=== PATIENT | male | born 1990 ===

== ENCOUNTER 2016-11-30 08:05 | Emergency (ER) | payer OTHER ==
[2016-11-30 08:06] VITALS: BMI 20.7
[2016-11-30 08:14] VITALS: O2SAT 100
[2016-11-30] MEDS ORDERED: Aluminum Hydroxide/Magnesium Hydroxide Susp (30 mL) PO STA (08:27)
[2016-11-30] MEDS ORDERED: Lidocaine 2% Viscous 100 ml PO STA (08:27)
[2016-11-30] MEDS ORDERED: Aluminum Hydroxide/Magnesium Hydroxide Susp (30 mL) ONE (08:39)
--- NOTE | 2016-11-30 08:41 | C.PDOC ---
History Of Present Illness 26 y/o male, otherwise well, presents to the ED for evaluation of abdominal pain and vomiting. He reports that while he was on his way to work he drank a can of Nutriment and by the time he got to work he was experiencing "severe" abdominal cramping and he felt like he needed to move his bowels. Patient states that he tried unsuccessfully to move his bowels and when he got up to leave the bathroom he became suddenly nauseated and vomited. At this time the patient reports he's feeling much better and the pain has subsided. He denies any diarrhea, fevers, or other complaints. Time Seen by Provider: 11/30/16 08:17 Chief Complaint (Nursing): GI Problem History Per: Patient History/Exam Limitations: no limitations Onset/Duration Of Symptoms: Mins, Gradual, Persistent Current Symptoms Are (Timing): Better Recent travel outside of the [place]: No Past Medical History Reviewed: Historical Data, Nursing Documentation, Vital Signs Vital Signs: Last Vital Signs Temp 98 F 11/30/16 08:10 Pulse 59 L 11/30/16 08:10 Resp 20 11/30/16 08:10 BP 114/74 11/30/16 08:10 Pulse Ox 100 11/30/16 08:44 - Medical History PMH: No Chronic Diseases Surgical History: No Surg Hx Family History: States: Unknown Family Hx - Social History Hx Tobacco Use: No Hx Alcohol Use: No Hx Substance Use: No - Immunization History Hx Tetanus Toxoid Vaccination: No Hx Influenza Vaccination: No Hx Pneumococcal Vaccination: No Review Of Systems Except As Marked, All Systems Reviewed And Found Negative. Constitutional: Negative for: Fever Gastrointestinal: Positive for: Vomiting (x 1), Abdominal Pain (resolved). Negative for: Diarrhea Physical Exam - Physical Exam Appears: Non-toxic, No Acute Distress Skin: Normal Color, Warm, Dry Head: Atraumatic, Normacephalic Eye(s): bilateral: Normal Inspection, PERRL Oral Mucosa: Moist Neck: Normal ROM, Supple Chest: Symmetrical Cardiovascular: Rhythm Regular Respiratory: Normal Breath Sounds, No Rales, No Rhonchi, No Wheezing Gastrointestinal/Abdominal: Normal Exam, Soft, No Tenderness Back: Normal Inspection, No CVA Tenderness Extremity: Normal ROM, Deformity (old deformity to right hand), No Swelling Neurological/Psych: Oriented x3, Normal Speech, Normal Cognition ED Course And Treatment O2 Sat by Pulse Oximetry: 100 (ra) Pulse Ox Interpretation: Normal Medical Decision Making Medical Decision Making: Impression: abdominal pain with one episode of vomiting, resolved prior to arrival. Plan: * Maalox PO, Pepcid PO, Lidocaine 2% Viscous PO * Patient feeling fine Disposition Counseled Patient/Family Regarding: Diagnosis, Need For Followup - Disposition Disposition: HOME/ ROUTINE Disposition Time: 10:13 Condition: STABLE Additional Instructions: Follow up with your doctor as needed. Return to the Emergency department with any further concerns. Instructions: Acute Nausea and Vomiting (ED) - POA Present On Arrival: None - Clinical Impression Clinical Impression: Vomiting without nausea - Scribe Statement The provider has reviewed the documentation as recorded by the Scribe (Jyoti Carbajal) Provider Attestation: All medical record entries made by the Scribe were at my direction and personally dictated by me. I have reviewed the chart and agree that the record accurately reflects my personal performance of the history, physical exam, medical decision making, and the department course for this patient. I have also personally directed, reviewed, and agree with the discharge instructions and disposition.
[2016-11-30 10:31] VITALS: BP 115/70; PULSE 58; RESP 18; TEMP 97.3
== END 2016-11-30 10:32 | disposition home or self-care (01) ==
LOC: C.ER 08:05
DX: R11.10 Vomiting, unspecified (principal)

== ENCOUNTER 2017-06-20 11:35 | Emergency (ER) | payer OTHER ==
[2017-06-20 11:38] VITALS: BMI 18.3
[2017-06-20 11:39] VITALS: TEMP 97.7
--- NOTE | 2017-06-20 12:20 | RAD ---
HISTORY: pain COMPARISON: None available. TECHNIQUE: Chest PA and lateral FINDINGS: LUNGS: Biapical pleural thickening. No focal consolidation. Please note that chest x-ray has limited sensitivity for the detection of pulmonary masses. PLEURA: No significant pleural effusion identified. No definite pneumothorax . CARDIOVASCULAR: The cardiomediastinal silhouette appears within normal limits of size. OSSEOUS STRUCTURES: No acute osseous abnormality identified. VISUALIZED UPPER ABDOMEN: Unremarkable. OTHER FINDINGS: None. IMPRESSION: Biapical pleural thickening.
--- NOTE | 2017-06-20 12:27 | C.PDOC ---
History Of Present Illness 26 yo male c/o left sided upper back pain for 2+ months. Pain is worse with movement. Pt notes "I cant get comfortable in bed." No chest pain. No SOB. Took Advil without relief. 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 Time Seen by Provider: 06/20/17 11:40 Chief Complaint (Nursing): Back Pain History Per: Patient History/Exam Limitations: no limitations Onset/Duration Of Symptoms: Days Current Symptoms Are (Timing): Still Present Quality Of Discomfort: "Pain" Past Medical History Vital Signs: Last Vital Signs Temp 97.7 F 06/20/17 11:38 Pulse 67 06/20/17 12:59 Resp 17 06/20/17 12:59 BP 116/65 06/20/17 12:59 Pulse Ox 99 06/20/17 12:59 Family History: States: Other Other Family History: Mom- lung cancer - Social History Hx Tobacco Use: No Hx Alcohol Use: No Hx Substance Use: No - Immunization History Hx Tetanus Toxoid Vaccination: No Hx Influenza Vaccination: No Hx Pneumococcal Vaccination: No Review Of Systems Except As Marked, All Systems Reviewed And Found Negative. Constitutional: Negative for: Fever Cardiovascular: Negative for: Chest Pain Respiratory: Negative for: Cough, Shortness of Breath, SOB with Excertion Physical Exam - Physical Exam Appears: Well, Non-toxic, No Acute Distress Skin: Normal Color, Warm, Dry Head: Atraumatic, Normacephalic Eye(s): bilateral: Normal Inspection, PERRL, EOMI Nose: Normal Oral Mucosa: Moist Throat: Normal Neck: Normal Chest: Symmetrical Cardiovascular: Rhythm Regular Respiratory: Normal Breath Sounds Gastrointestinal/Abdominal: Normal Exam, Soft, No Tenderness Back: No Vertebral Tenderness, Paraspinal Tenderness ((+) left subscapularis point tenderness) Extremity: Normal ROM Neurological/Psych: Oriented x3, Normal Speech Gait: Steady ED Course And Treatment O2 Sat by Pulse Oximetry: 97 Progress Note: Flexeril given. Case discussed with Dr Carranza, agreed upon plan and discharge. Pt was instructed to follow up with clinic in 1-2 days. Return to ER if symtpoms persist or worsen. Disposition - Disposition Referrals: [facility] [Outside] Disposition: HOME/ ROUTINE Disposition Time: 12:32 Condition: STABLE Additional Instructions: Follow up with the clinic in 2-5 days for further evaluation. Take medications as prescribed. Return to the emergency department at any time if symptoms persist or worsen. You may call [facility] service for any assistance [phone]. Prescriptions: Naproxen [Naprosyn] 1 tab PO BID PRN #20 tab PRN Reason: Pain Instructions: Back Pain (ED) Forms: [facility] (Beninese) - Clinical Impression Clinical Impression: Upper back pain
[2017-06-20 13:00] VITALS: BP 116/65; PULSE 67; RESP 17
[2017-06-20 13:06] VITALS: O2SAT 97
== END 2017-06-20 13:00 | disposition home or self-care (01) ==
LOC: C.ER 11:35
DX: M54.9 Dorsalgia, unspecified (principal)

== ENCOUNTER 2017-09-20 11:55 | Emergency (ER) | payer SELFPAY ==
[2017-09-20 11:56] VITALS: BMI 18.3
[2017-09-20 12:04] VITALS: RESP 18; TEMP 97.9; O2SAT 100
--- NOTE | 2017-09-20 13:45 | C.PDOC ---
History Of Present Illness 26 year old male, with no significant past medical history, presents to ED for evaluation of cold, cough, sore throat, and generalized weakness for the past 2- 3 days. Notes having pain upon swallowing. Pt reports having an episode of vomiting last night. Denies abdominal pain, diarrhea, constipations, urinary symptoms, shortness of breath, or fever. Time Seen by Provider: 09/20/17 12:44 Chief Complaint (Nursing): Flu-like Symptoms History Per: Patient History/Exam Limitations: no limitations Onset/Duration Of Symptoms: Days (3) Current Symptoms Are (Timing): Still Present Location Of Pain: Throat Sick Contacts (Context): None Associated Symptoms: Sore Throat, Cough, Vomiting. denies: Fever, Chills, Sputum, Neck Pain, Sinus Drainage, Nasal Congestion Ear Symptoms: Bilateral: None Recent travel outside of the [place]: No Additional History Per: Patient Past Medical History Reviewed: Historical Data, Nursing Documentation, Vital Signs Vital Signs: Last Vital Signs Temp 97.9 F 09/20/17 12:00 Pulse 90 09/20/17 14:02 Resp 18 09/20/17 14:02 BP 116/74 09/20/17 14:02 Pulse Ox 100 09/20/17 14:02 Family History: States: Unknown Family Hx - Social History Hx Tobacco Use: No Hx Alcohol Use: No Hx Substance Use: No - Immunization History Hx Tetanus Toxoid Vaccination: No Hx Influenza Vaccination: No Hx Pneumococcal Vaccination: No Review Of Systems Except As Marked, All Systems Reviewed And Found Negative. Constitutional: Positive for: Weakness. Negative for: Fever, Chills ENT: Positive for: Throat Pain. Negative for: Ear Pain, Nose Discharge, Nose Congestion Cardiovascular: Negative for: Chest Pain, Palpitations Respiratory: Positive for: Cough. Negative for: Shortness of Breath Gastrointestinal: Positive for: Vomiting. Negative for: Abdominal Pain, Diarrhea, Constipation, Hematemesis Genitourinary: Negative for: Dysuria, Frequency, Hematuria Musculoskeletal: Negative for: Back Pain Neurological: Negative for: Headache, Dizziness Physical Exam - Physical Exam Appears: Non-toxic, No Acute Distress Skin: Normal Color, Warm, Dry Head: Atraumatic, Normacephalic Eye(s): bilateral: Normal Inspection Ear(s): Bilateral: Normal Nose: Normal Oral Mucosa: Moist Tongue: Normal Appearing Lips: Normal Appearing Throat: Normal, No Erythema, No Exudate, No Drooling Neck: Normal ROM, Supple Lymphatic: Normal Exam, No Adenopathy Chest: Symmetrical Cardiovascular: Rhythm Regular, No Murmur Respiratory: Normal Breath Sounds, No Rales, No Rhonchi, No Wheezing Gastrointestinal/Abdominal: Soft, No Tenderness Extremity: Normal ROM Neurological/Psych: Oriented x3, Normal Speech ED Course And Treatment O2 Sat by Pulse Oximetry: 100 (RA) Pulse Ox Interpretation: Normal Progress Note: On reassessment, patient is resting comfortably, and is in no acute distress. Patient was instructed to follow up with physician/clinic in 1- 2 days for further evaluation. Disposition Counseled Patient/Family Regarding: Diagnosis, Need For Followup, Rx Given - Disposition Disposition: HOME/ ROUTINE Disposition Time: 13:50 Condition: STABLE Additional Instructions: Please follow up with PMD Take meds as directed Return to ER if worse Prescriptions: guaiFENesin/Dextromethorphan [Robitussin DM] 5 ml PO QID #100 ml Ibuprofen [Motrin] 600 mg PO Q6H #20 tab Instructions: Viral Syndrome (ED) Forms: [facility] (Swedish), Work Excuse - Clinical Impression Clinical Impression: Viral illness - PA / [employer] / Resident Statement MD/DO has reviewed & agrees with the documentation as recorded. - Scribe Statement The provider has reviewed the documentation as recorded by the Geibnoy Sparrow All medical record entries made by the Adams were at my direction and personally dictated by me. I have reviewed the chart and agree that the record accurately reflects my personal performance of the history, physical exam, medical decision making, and the department course for this patient. I have also personally directed, reviewed, and agree with the discharge instructions and disposition.
[2017-09-20 14:02] VITALS: BP 116/74; PULSE 90
== END 2017-09-20 14:03 | disposition home or self-care (01) ==
LOC: C.ER 11:55
DX: B34.9 Viral infection, unspecified (principal)

== ENCOUNTER 2018-03-10 13:56 | Emergency (ER) | payer SELFPAY ==
[2018-03-10 13:56] VITALS: BMI 18.3
[2018-03-10 14:04] VITALS: BP 121/71; PULSE 106; RESP 20; TEMP 98; O2SAT 100
--- NOTE | 2018-03-10 14:17 | C.PDOC ---
History Of Present Illness 27 y/o male presents to ED with c/o diarrhea since this morning and requesting work note to return to work. Patient states he ate at a cook out yesterday and developed loose stool yesterday and today. Patient denies abdominal pain, nausea , vomiting, fever or any other complaints at this time. Time Seen by Provider: 03/10/18 14:08 Chief Complaint (Nursing): GI Problem History Per: Patient History/Exam Limitations: no limitations Onset/Duration Of Symptoms: Days Current Symptoms Are (Timing): Still Present Past Medical History Reviewed: Historical Data, Nursing Documentation, Vital Signs Vital Signs: Last Vital Signs Temp 98 F 03/10/18 14:01 Pulse 106 H 03/10/18 14:01 Resp 20 03/10/18 14:01 BP 121/71 03/10/18 14:01 Pulse Ox 100 03/10/18 14:17 - Medical History PMH: No Chronic Diseases Surgical History: No Surg Hx Family History: States: No Known Family Hx - Social History Hx Tobacco Use: No Hx Alcohol Use: No Hx Substance Use: No - Immunization History Hx Tetanus Toxoid Vaccination: No Hx Influenza Vaccination: No Hx Pneumococcal Vaccination: No Review Of Systems Constitutional: Negative for: Fever, Chills Gastrointestinal: Positive for: Diarrhea. Negative for: Nausea, Vomiting, Abdominal Pain Genitourinary: Negative for: Dysuria Skin: Negative for: Rash Physical Exam - Physical Exam Appears: Non-toxic, No Acute Distress Skin: Warm, Dry, No Rash Head: Atraumatic, Normacephalic Eye(s): bilateral: Normal Inspection Oral Mucosa: Moist Neck: Normal ROM, Supple Cardiovascular: Rhythm Regular Respiratory: Normal Breath Sounds, No Rales, No Rhonchi, No Wheezing Gastrointestinal/Abdominal: Soft, No Tenderness, No Guarding, No Rebound Neurological/Psych: Oriented x3, Normal Speech, Normal Cognition ED Course And Treatment O2 Sat by Pulse Oximetry: 100 (RA) Pulse Ox Interpretation: Normal Medical Decision Making Medical Decision Making: mild GI distress NEG McBurney's LOW susp of AP needs work note Disposition Doctor Will See Patient In The: Office Counseled Patient/Family Regarding: Studies Performed, Diagnosis - Disposition Referrals: [facility] [Outside] [facility] [Outside] Disposition: HOME/ ROUTINE Disposition Time: 14:17 Condition: GOOD Additional Instructions: drink plenty of fluids, Maalox 30 cc's (one tablespoon) 4-5x/day as needed BRAT diet (bananas, white rice, applesauce, toast/bread) x 2 days Instructions: Diarrhea in Adolescents and Adults Forms: [facility] (Tunisian), Work Excuse - Clinical Impression Clinical Impression: Gastroenteritis - Scribe Statement The provider has reviewed the documentation as recorded by the Geibnoy Pacheco All medical record entries made by the Adams were at my direction and personally dictated by me. I have reviewed the chart and agree that the record accurately reflects my personal performance of the history, physical exam, medical decision making, and the department course for this patient. I have also personally directed, reviewed, and agree with the discharge instructions and disposition.
[2018-03-10] MEDS ORDERED: Alum-Mag Hydrox-Simethicone Susp (30 mL) PO STA (14:18)
[2018-03-10] MEDS ORDERED: Alum-Mag Hydrox-Simethicone Susp (30 mL) ONE (14:24)
== END 2018-03-10 14:38 | disposition home or self-care (01) ==
LOC: C.ER 13:56
DX: K52.9 Noninfective gastroenteritis and colitis, unspecified (principal)